=== PATIENT | female | born 1995 | race African-American/Black ===

== ENCOUNTER 2021-11-24 21:44 | Inpatient (IN) | payer OTHER ==
[~2021-11-24] VITALS: Ht 167.6 cm; Wt 101.2 kg
[2021-11-24] MEDS ORDERED: PNV1TABL76 PO (22:30)
[2021-11-24] MEDS ORDERED: RHO(D) IMMUNE GLOBULIN 300 MCG/SYR IM PRN (22:45)
[2021-11-24] MEDS ORDERED: NALOXONE HCL 0.4 MG/ML 1ML VIAL IM PRN (22:45)
[2021-11-24] MEDS ORDERED: METHYLERGONOVINE MALEATE 0.2 MG/ML IM PRN (22:45)
[2021-11-24] MEDS ORDERED: DEXT 5%/LR + PITOCIN 20UNITS/L 1,000 ML IV SCH (22:45)
[2021-11-24] MEDS ORDERED: MISOPROSTOL 100MCG TABLET VG SCH (22:45)
[2021-11-24] MEDS ORDERED: LIDOCAINE HCL 1% 10 MG/ML 10ML VIAL IJ SCH (22:45)
[2021-11-24] MEDS ORDERED: CARBOPROST TROMETHAMINE 250 MCG/ML AMPUL IM PRN (22:45)
[2021-11-24] MEDS ORDERED: BUTORPHANOL TARTRATE 2 MG/ML VIAL IV PRN (22:45)
[2021-11-24 23:52] LABS: BASOPHILS % 0.2 % (0.0-2.0); EOSINOPHILS % 0.3 % (0.0-5.0); HEMATOCRIT. 32.1 % (36.0-48.0); LYMPHOCYTES % 13.6 % (20.0-50.0); MEAN CORPUSCULAR HEMOGLOBIN 30.4 pg (28.0-32.0); MEAN CORPUSCULAR VOLUME 88.6 fL (81.0-99.0); MEAN PLATELET VOLUME 11.3 fl (7.4-10.4); MONOCYTES % 6.2 % (2.0-8.0); NEUTROPHILS % 79.7 % (40.0-76.0); PLATELET 149 x1000/uL (130-400); RED BLOOD CELL COUNT 3.62 mill/uL (4.2-5.4); RED CELL DISTRIBUTION WIDTH 13.5 % (11.6-14.6)
[2021-11-25 00:03] LABS: INR 0.9; PARTIAL THROMBOPLASTIN TIME 30.3 sec (23.4-31.0); PROTHROMBIN TIME 10.1 sec (9.6-11.0)
[2021-11-25] MEDS: LACTATED RINGERS 1,000 ML IV SCH ×3 (00:24→10:05)
[2021-11-25 00:27] LABS: HEPATITIS B SURFACE ANTIGEN NEGATIVE
[2021-11-25] MEDS ORDERED: ROPIVACAINE HCL/PF 100ML 200 ML INFIL SCH (01:00)
[2021-11-25] MEDS ORDERED: ROPIVACAINE HCL/PF EPIDURAL 200 ML EPI ONE (01:01)
[2021-11-25 02:33] LABS: CLARITY URINE CLEAR (CLEAR); COLOR URINE YELLOW (YELLOW); KETONES URINE 4+ (NEGATIVE); LEUKOCYTE ESTERASE URINE NEGATIVE (NEGATIVE); NITRITE URINE NEGATIVE (NEGATIVE); OCCULT BLOOD URINE NEGATIVE (NEGATIVE); PROTEIN URINE TRACE (NEGATIVE); SPECIFIC GRAVITY URINE 1.024 (1.005-1.030)
[2021-11-25 02:47] LABS: *AMPHETAMINES SCREEN URINE NEGATIVE (NEGATIVE); *BARBITURATES SCREEN URINE NEGATIVE (NEGATIVE); *BENZODIAZEPINES SCREEN URINE NEGATIVE (NEGATIVE); *COCAINE SCREEN URINE NEGATIVE (NEGATIVE); CANNABINOID URINE SCREEN NEGATIVE (NEGATIVE)
[2021-11-25 02:48] LABS: METHADONE URINE SCREEN NEGATIVE (NEGATIVE); OPIATES URINE SCREEN NEGATIVE (NEGATIVE); PHENCYCLIDINE URINE SCREEN NEGATIVE (NEGATIVE)
[2021-11-25] MEDS ORDERED: ACETAMINOPHEN WITH CODEINE 300/30MG TABLET PO PRN (14:15)
[2021-11-25] MEDS ORDERED: LANOLIN OINT 7GM TUBE TOP PRN (14:15)
[2021-11-25] MEDS ORDERED: HEMORRHOIDAL SUPP PR PRN (14:15)
[2021-11-25] MEDS ORDERED: DEXT 5%/LR + PITOCIN 20UNITS/L 1,000 ML IV SCH (14:15)
[2021-11-25] MEDS ORDERED: GLYCERIN/WITCH HAZEL LEAF MEDICATED PAD TOP PRN (14:15)
[2021-11-25] MEDS ORDERED: RHO(D) IMMUNE GLOBULIN 300 MCG/SYR IM PRN (14:15)
[2021-11-25] MEDS ORDERED: BISACODYL 10MG SUPP PR PRN (14:15)
[2021-11-25] MEDS ORDERED: IBUPROFEN 800MG TABLET PO PRN (14:15)
[2021-11-25] MEDS ORDERED: METHYLERGONOVINE MALEATE 0.2 MG/ML IM PRN (14:15)
[2021-11-25] MEDS ORDERED: IBUPROFEN 400MG TABLET PO PRN (14:15)
[2021-11-25] MEDS ORDERED: BENZOCAINE/LANOLIN/ALOE VERA SPRAY TOP PRN (14:15)
[2021-11-25 16:34] VITALS: BP 123/69
[2021-11-25 17:00] VITALS: BP 112/65
[2021-11-25] MEDS: SIMETHICONE 80MG TABLET CHEW PO SCH ×2 (17:08→21:26)
[2021-11-25] MEDS: MAGNESIUM/ALUMINUM HYDROXIDE/SIMETHICONE 30ML UDC PO SCH ×2 (17:08→21:26)
[2021-11-25 18:00] VITALS: BP 109/68
[2021-11-25 19:30] VITALS: BP 108/57
[2021-11-25] MEDS: DOCUSATE SODIUM 100MG CAPSULE PO SCH (21:26)
[2021-11-26 04:00] VITALS: BP 103/57
[2021-11-26] MEDS: MAGNESIUM/ALUMINUM HYDROXIDE/SIMETHICONE 30ML UDC PO SCH ×4 (07:30→20:45)
[2021-11-26] MEDS: FERROUS SULFATE 325MG TABLET PO SCH ×3 (07:30→17:30)
[2021-11-26 07:37] LABS: BASOPHILS % 0.2 % (0.0-2.0); EOSINOPHILS % 0.4 % (0.0-5.0); HEMATOCRIT. 27.3 % (36.0-48.0); HEMOGLOBIN. 9.3 g/dL (12.0-16.0); LYMPHOCYTES % 15.2 % (20.0-50.0); MEAN CORPUSCULAR HEMOGLOBIN 30.4 pg (28.0-32.0); MEAN CORPUSCULAR VOLUME 89.5 fL (81.0-99.0); MEAN PLATELET VOLUME 11.3 fl (7.4-10.4); NEUTROPHILS % 77.2 % (40.0-76.0); PLATELET 130 x1000/uL (130-400); RED BLOOD CELL COUNT 3.05 mill/uL (4.2-5.4); RED CELL DISTRIBUTION WIDTH 13.5 % (11.6-14.6)
[2021-11-26] MEDS: SIMETHICONE 80MG TABLET CHEW PO SCH ×4 (08:00→20:44)
[2021-11-26 08:11] VITALS: BP 108/66
[2021-11-26] MEDS: PRENATAL VIT/FE FUMARATE/FA TABLET PO SCH (08:20)
[2021-11-26 15:15] VITALS: BP 99/57
[2021-11-26 20:00] VITALS: BP 113/73
[2021-11-26] MEDS: DOCUSATE SODIUM 100MG CAPSULE PO SCH (20:44)
[2021-11-27 03:55] VITALS: BP 120/77
[2021-11-27] MEDS: MAGNESIUM/ALUMINUM HYDROXIDE/SIMETHICONE 30ML UDC PO SCH (07:30)
[2021-11-27 07:41] VITALS: BP 97/61
[2021-11-27] MEDS ORDERED: IBUP-2030 PO (07:55)
[2021-11-27] MEDS ORDERED: FERR-63 PO (07:55)
[2021-11-27] MEDS: FERROUS SULFATE 325MG TABLET PO SCH (10:26)
[2021-11-27] MEDS: SIMETHICONE 80MG TABLET CHEW PO SCH (10:26)
[2021-11-27] MEDS: PRENATAL VIT/FE FUMARATE/FA TABLET PO SCH (10:26)
== END 2021-11-27 12:40 | disposition home or self-care (01) | DRG 560 ==
LOC: 8 EST LDRP 21:44 → OBSVTOIN 21:44 → 8EST 11-25 16:26
PROVIDERS: ADMIT Obstetrics & Gynecology; ATTEND Obstetrics & Gynecology
PROC: 10E0XZZ Delivery of Products of Conception, External Approach (ICD-10-PCS; principal; 2021-11-25)
PROC: 0KQM0ZZ Repair Perineum Muscle, Open Approach (ICD-10-PCS; 2021-11-25)
PROC: 3E0R3BZ Introduction of Anesthetic Agent into Spinal Canal, Percutaneous Approach (ICD-10-PCS; 2021-11-26)
PROC: 00HU33Z Insertion of Infusion Device into Spinal Canal, Percutaneous Approach (ICD-10-PCS; 2021-11-26)
DX: O99.12 Other diseases of the blood and blood-forming organs and certain disorders involving the immune mechanism complicating childbirth (principal); Z37.0 Single live birth; D62 Acute posthemorrhagic anemia; O70.1 Second degree perineal laceration during delivery; Z3A.38 38 weeks gestation of pregnancy; Z20.822 Contact with and (suspected) exposure to COVID-19; O90.81 Anemia of the puerperium; D72.829 Elevated white blood cell count, unspecified
CPT/HCPCS: 36415; 80305; 81003; 85025; 86592; 86703; 86762; 86850; 86900; 87340; 87426; 99281; G0378; J2590; J2795